=== PATIENT | female | born 1975 | race Asian ===

== ENCOUNTER 2022-01-16 17:48 | Emergency (ER) | payer SELFPAY ==
--- NOTE | 2022-01-16 20:19 | NUR ---
Patient was just called at this time to be triaged due to triage nurse having two patient and entire ER full. Patient was not present in the waiting or outside of ER.
--- NOTE | 2022-01-16 21:00 | NUR ---
PATIENT WAS CALLED TO BE TRIAGED BUT WAS NOT PRESENT IN THE WAITING ROOM OR OUTSIDE OF ER. PATIENT WAS NOT TRIAGED OR SEEN BY ERMD.
== END 2022-01-16 21:30 | disposition left against medical advice (07) ==
LOC: ER 17:52
DX: Z53.21 Procedure and treatment not carried out due to patient leaving prior to being seen by health care provider (principal)

== ENCOUNTER 2022-01-19 11:41 | Emergency (ER) | payer OTHER ==
[~2022-01-19] VITALS: Ht 157.5 cm; Wt 52.6 kg
--- NOTE | 2022-01-19 12:06 | NUR ---
Pt out of ER for Ct scan.
--- NOTE | 2022-01-19 12:19 | NUR ---
Pt back in ER, refuses EKG. Dr Feldman notified.
[2022-01-19 12:44] LABS: MEAN CORPUSCULAR VOLUME 91.5 fL (75.5-95.3); PLATELET COUNT (AUTO) 342 K/uL (179-408)
[2022-01-19 12:58] LABS: BILIRUBIN,DIRECT 0.1 mg/dL (0.0-0.2); BILIRUBIN,TOTAL 0.1 mg/dL (0.2-1.0); CREATININE 0.7 mg/dL (0.6-1.3); POTASSIUM 4.2 mmol/L (3.5-5.1); TOTAL PROTEIN, SERUM 8.3 g/dL (6.4-8.2)
--- NOTE | 2022-01-19 14:18 | NUR ---
Patient discharged to home in stable condition. Written and verbal after care instructions given. Patient verbalizes understanding of instructions. Stressed follow up or return to ER for worsening s/s.
[2022-01-19 14:19] VITALS: BP 121/86
== END 2022-01-19 14:19 | disposition home or self-care (01) ==
LOC: ER 11:41
DX: S09.90XA Unspecified injury of head, initial encounter (principal); S00.83XA Contusion of other part of head, initial encounter; W19.XXXA Unspecified fall, initial encounter; Y92.89 Other specified places as the place of occurrence of the external cause; R55 Syncope and collapse
CPT/HCPCS: 36415; 70450; 82652; 84443; 85025; 93005; A4663